=== PATIENT | male | born 1940 ===

== ENCOUNTER → 2018-01-30 | Outpatient (CLI) | payer MEDICARE ==
[2018-01-31 10:07] LABS: Immunoglobulin G, Serum 1256 mg/dL (700-1600)
== END | disposition home or self-care (01) ==
LOC: LAB 11:55
DX: C90.00 Multiple myeloma not having achieved remission (principal); R97.20 Elevated prostate specific antigen [PSA]
CPT/HCPCS: 36415; 82784; 82785; 83883; 84153; 84155; 84165; 85652; 86334